=== PATIENT | male | born 1995 | race Two or more races ===

== ENCOUNTER 2017-02-26 01:07 | Emergency (ER) | payer SELFPAY ==
--- NOTE | 2017-02-26 01:16 | EDPHY ---
H & P HPI/ROS: HPI CHIEF COMPLAINT: Alcohol intoxication HISTORY OF PRESENT ILLNESS: This patient 21-year-old male who presents emergency room by EMS intoxicated with alcohol. He [place]. He has a hematoma to the left posterior occiput. Patient is complaining of midline cervical spine pain. Patient be placed in a cervical collar. It is noted he is highly intoxicated with alcohol. Slurring his speech and smells of alcohol. Only identifiable trauma on exam is a left posterior occiput hematoma. Past Medical History: Denies significant medical history Past Surgical History: Denies significant surgical history Social History: Denies daily use drugs alcohol tobacco products Family History: Noncontributory ROS REVIEW OF SYSTEMS: A comprehensive 10 point review of systems is otherwise negative aside from elements mentioned in the history of present illness. Exam Constitutional smells of alcohol, slurring speech, triage nursing summary reviewed, vital signs reviewed, awake/alert. Eyes normal conjunctivae and sclera, EOMI, PERRLA. HENT head/neck: Left posterior occiput shows hematoma no visible laceration, cervical spine no midline cervical spine pain. No crepitus. No step-offs. , moist mucus membranes, no epistaxis, neck supple/ no meningismus, no raccoon eyes. Respiratory clear to auscultation bilaterally, normal breath sounds, no respiratory distress, no wheezing. Cardiovascular rate normal, regular rhythm, no murmur, no edema, distal pulses normal. Gastrointestinal soft, non-tender, no rebound, no guarding, normal bowel sounds, no distension, no pulsatile mass. Genitourinary no CVA tenderness. Musculoskeletal no midline vertebral tenderness, full range of motion, no calf swelling, no tenderness of extremities, no meningismus, good pulses, neurovascularly intact. Skin pink, warm, & dry, no rash, skin atraumatic. Neurologic intoxicated, slurring speech, awake, alert and oriented x 3, AAOx3 , moves all 4 extremities equally, motor intact, sensory intact, CN II-XII intact, normal cerebellar, normal vision, Psychiatric normal mood/affect. Heme/Lymph/Immune no lymphadenopathy. Differential Diagnosis: Includes but is not limited to in a particular order acute alcohol intoxication, closed head injury, intracranial trauma, cervical spine injury Medical Decision Making: Plan for this patient breath alcohol. CT head without contrast CT cervical spine without contrast two view chest x-ray. Re-evaluation: Negative chest x-ray, negative foot x-ray, negative CT head and neck for trauma. Re-evaluation patient ambulatory. Clinically sober. CT scan, x-rays reviewed nothing acute seen. Hematoma. Patient is safe ride home. Agreeable for discharge. He does understand return emergency room if he develops any further pain anywhere no new complaints of pain. I did go over his x-rays with him he was provided crutches any walking boot for his right foot pain. His CT head and CT neck and chest x-ray and x-ray of the foot were unremarkable for acute trauma. Hematoma noted. Of scalp. Source: Patient Constitutional: Initial Vital Signs Temperature (C) 36.6 C 02/26/17 01:54 Heart Rate 100 02/26/17 01:54 Respiratory Rate 16 02/26/17 01:54 Blood Pressure 119/77 02/26/17 01:54 O2 Sat (%) 97 02/26/17 01:54 O2 Delivery Mode Room Air Allergies/Adverse Reactions: cat dander Allergy (Verified 02/26/17 01:54) Home Medications: Medication Instructions Recorded NK [No Known Home Meds] 02/26/17 Medical Decision Making - Diagnostics Imaging Results: Imaging Impressions Foot X-Ray 02/26/17 02:05 Impression: 3 foreign bodies of undetermined chronicity. No fracture. Departure - Departure Disposition: Home, Routine, Self-Care Clinical Impression: Alcoholic intoxication Qualifiers: Complication of substance-induced condition: uncomplicated Qualified Code(s): F10.120 - Alcohol abuse with intoxication, uncomplicated Fall Qualifiers: Encounter type: initial encounter Qualified Code(s): W19.XXXA - Unspecified fall, initial encounter Scalp hematoma Qualifiers: Encounter type: initial encounter Qualified Code(s): S00.03XA - Contusion of scalp, initial encounter Condition: Fair Instructions: Hematoma (ED), Fall Prevention (ED), Alcohol Intoxication (ED) Additional Instructions: 1. Please return emergency room if develops any worsening symptoms or new areas of pain. 2. You had a CT scan of her head and neck that did not show any trauma except a scalp hematoma he also had a chest x-ray and a foot x-ray that do not show anything acute. Referrals: Patient,NotPresent [Unknown] - As per Instructions
[2017-02-26 01:55] VITALS: BP 119/77; PULSE 100; RESP 16; TEMP 97.9; O2SAT 97
== END 2017-02-26 03:08 | disposition home or self-care (01) ==
DX: S00.03XA Contusion of scalp, initial encounter (principal); F10.120 Alcohol abuse with intoxication, uncomplicated; W19.XXXA Unspecified fall, initial encounter; Y92.828 Other wilderness area as the place of occurrence of the external cause

== ENCOUNTER 2017-09-09 00:49 | Emergency (ER) | payer SELFPAY ==
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
[2017-09-09 01:05] VITALS: BP 141/88; PULSE 58; RESP 16; TEMP 98.1; O2SAT 95
== END 2017-09-09 01:00 ==
DX: S00.81XA Abrasion of other part of head, initial encounter (principal); W20.8XXA Other cause of strike by thrown, projected or falling object, initial encounter